=== PATIENT | male | born 1940 | race Caucasian/White ===

== ENCOUNTER 2020-11-15 11:47 | Emergency (ER) | payer OTHER, MEDICARE ==
[~2020-11-15] VITALS: Ht 170.2 cm; Wt 72.3 kg
[~2020-11-15 11:47] MED LIST: AMLODIPINE BESY10 MG PO; ATENOLOL 50MG T50 MG PO; FOLIC ACID 1 MG1 MG PO; FOSINOPRIL SODI40 M1 PO
[2020-11-15] MEDS ORDERED: NORCO5 PO (12:02)
[2020-11-15] MEDS ORDERED: HYDROCHLOROTH12.5 M1 PO (12:02)
[2020-11-15] MEDS ORDERED: SIMVASTATIN80 MG PO (12:02)
[2020-11-15] MEDS ORDERED: CARVEDILOL25 MG PO (12:08)
[2020-11-15] MEDS ORDERED: PROTONIX 20 MG20 MG PER TUBE (12:08)
[2020-11-15] MEDS ORDERED: CARVEDILOL12.5 MG PER TUBE (12:09)
[2020-11-15 12:14] LABS: ABSOLUTE EOSINOPHILS 0.4 thou/uL (0.0-0.7); ABSOLUTE LYMPHOCYTES 0.7 thou/uL (0.8-5.3); ABSOLUTE MONOCYTES 0.5 thou/uL (0.0-1.2); BASOPHILS 0.6 %; EOSINOPHILS 6.2 %; HEMATOCRIT 35.9 % (42.0-52.0); HEMOGLOBIN 11.8 gm/dL (14.0-18.0); LYMPHOCYTES 10.7 %; MCH 32.5 pg (26.0-34.0); MCV 98.7 fL (80.0-100.0); MONOCYTES 7.4 %; MPV 9.9 fl. (7.2-11.1); NUCLEATED RBCS 0 /100WBC; PLATELET COUNT* 170 thou/uL (150-400); POLYS 75.1 %; RBC 3.64 mil/uL (4.50-6.00); RDW-CV 15.3 % (10.5-14.5); WBC 6.6 thou/uL (4.0-11.0)
[2020-11-15 12:21] LABS: CALCIUM 9.3 mg/dL (8.5-10.1); CREATININE 2.5 mg/dL (0.6-1.3); POTASSIUM 5.1 mmol/L (3.5-5.1)
[2020-11-15 12:27] LABS: PROTIME 10.4 Seconds (9.20-11.50)
[2020-11-15 12:31] LABS: ALBUMIN 3.8 g/dL (3.4-5.0); MAGNESIUM 2.3 mg/dL (1.8-2.4); TOTAL BILIRUBIN 0.5 mg/dL (<0.1-1.0); TOTAL PROTEIN 7.4 g/dL (6.4-8.2)
--- NOTE | 2020-11-15 16:01 | EKG ---
[place] [address] ELECTROCARDIOGRAM REPORT Name: ROSALIAMANDYAJAY R Room: [facility]#: [id number] Admission: 11/15/20 Attend Phys: Discharge: Date of : 42 Date of Service: 11/15/20 1154 Report #: [id number] THIS REPORT FOR: //name// [facility] ED Test Date: 2020-11-15 Test Time: 11:54:40 Pat Name: AJAY LINDSEY Department: Room: Gender: Caser In: : 1940 Requested By: Thong Oviedo Order Number: [id number] MD: Neno Mayorga Measurements Intervals Lotus Rate: 82 P: 7 DE: 219 QRS: -49 QRSD: 93 T: 21 QT: 395 QTc: 462 Interpretive Statements Sinus rhythm Borderline prolonged DE interval Possible inferior infarct, old Possible anterior infarct, old Compared to ECG 10/08/2013 21:20:14 Myocardial infarct finding now present ST (T wave) deviation no longer present Electronically Signed On 11-15-2020 16:01:28 CDT by Neno Mayorga [email or web address] <ELECTRONICALLY SIGNED> By: Neno Mayorga MD, [facility] 11/15/20 1601 1154 1154 Neno Mayorga MD, [facility] /EPI
[2020-11-15 16:16] VITALS: BP 124/83
== END 2020-11-15 16:19 | disposition home or self-care (01) ==
LOC: M.ERS 11:47
PROVIDERS: Emergency Medicine Emergency Medical Services
DX: I47.1 Supraventricular tachycardia (principal); I10 Essential (primary) hypertension; Z88.8 Allergy status to other drugs, medicaments and biological substances; Z79.899 Other long term (current) drug therapy; Z88.5 Allergy status to narcotic agent